=== PATIENT | male | born 1955 | race Caucasian/White ===

== ENCOUNTER → 2016-04-11 | Day surgery (SDC) | payer BC ==
[2016-03-28 10:27] VITALS: Ht 193 cm; Wt 153.6 kg
[~2016-04-11] VITALS: Ht 193 cm; Wt 153.6 kg
[~2016-04-11] MED LIST: 500ML BSS 0.3ML EPI 1:1000PF IRRIG ONE; ACETAMINOPHEN 325 MG TAB PO PRN; AMLO2.5T PO; AMVISC PLUS 0.8ML SYRINGE INT OCU ONE; ASPI1CHW12 PO; ATOR80TA PO; ATROPINE SULFATE 0.1 MG/ML 5ML SYR IV PRN; BRIMONIDINE TART 0.2% OP SOLN PER DROP CHARGE ONE; BSS FLUSH ONE; ENDOCOAT 0.85ML SYRINGE INT OCU ONE; EpHEDrine SULFATE INJ 50 MG/ML AMP IV PRN; EpINEphrine INJ 1MG/ML AMP 1 MG/ML AMP ONE; FINA5TAB PO; GABA1CAP4 PO; HYG25 PO; INSPMPNVLG SC; LACTATED RINGER'S 1000ML 500 ML IV SCH; LIDOCAINE 4% OP SOLN DROP CHARGE ONE; LIDOCAINE 4% OP SOLN DROP CHARGE OPL SCH; LIDOCAINE HCL 1% MPF 2 ML VIAL ONE; LISI40TA PO; METF-384 PO; METO1TAB69 PO; MIDAZOLAM HCL 1 MG/ML 2ML VIAL ONE; MIX: 3ML BSS AND 1ML EPI(PF) TOP ONE; MOXIFLOXACIN OPH SOLN PER DROP CHARGE ONE; POTA10CA28 PO; POVIDONE-IODINE OP SOLN 30 ML BTL ONE; PROPARACAINE 0.5% OP SOLN PER DROP CHARGE OPL SCH; TOBRAMYCIN/DEXAMETHASONE OPH OINT PER APPLN CHARGE ONE
--- NOTE | 2016-04-11 06:55 | History & Physical Bridge - [place] ---
H&P Re-Evaluation Bridge Note: I have examined the patient, reviewed the History & Physical and in the interval since the performance of the History & Physical I have noted the following changes of clinical significance: No changes noted
[2016-04-11] MEDS: PHENYLEPHRINE HCL 2.5% OP SOLN PER DROP CHARGE OPL SCH ×2 (06:56→07:01)
[2016-04-11] MEDS: TROPICAMIDE 1% OP SOLN PER DROP CHARGE OPL SCH ×2 (06:57→07:02)
[2016-04-11] MEDS: CYCLOPENTOLATE HCL 1% OP SOLN PER DROP CHARGE OPL SCH ×2 (06:58→07:03)
[2016-04-11] MEDS: KETOROLAC 0.5% OP SOLN PER DROP CHARGE OPL SCH ×2 (06:59→07:04)
[2016-04-11] MEDS: MOXIFLOXACIN OPH SOLN PER DROP CHARGE OPL SCH ×2 (07:00→07:16)
--- NOTE | 2016-04-11 08:04 | Discharge Instructions-SurgCtr ---
Discharge Instructions Visit Reason for Visit: Cataract Left Eye Discharge Discharge Diagnosis / Problem: cataract left eye Discharge Goals Goal(s): Improve function Medications Stopped Medications Name(s): METFORMIN LAST DOSE MONDAY Activity Recommendations Activity Limitations: per Instructions/Follow-up section Lifting Limitations: no more than 5 pounds Anesthesia . Post Anesthesia Instructions: If you have had General Anesthesia or IV Sedation: * Do not drive today. * Resume driving when surgeon permits. * Do not make important decisions or sign legal documents today. * Call surgeon for: 1. Temperature elevations greater than 101 degrees F. 2. Uncontrollable pain. 3. Excessive bleeding. 4. Persistent nausea and vomiting. 5. Medication intolerance (nausea, vomiting or rash). * For nausea and vomiting use only clear liquids such as: tea, soda, bouillon until nausea subsides, then gradually increase diet as tolerated. * If you have any concerns or questions, call your surgeon's office. If physician is unavailable and it is an emergency, call 911 or go to the nearest emergency room. . Instructions / Follow-Up Instructions / Follow-Up ACTIVITY RECOMMENDATIONS: * Light activities * You may walk outside, read, watch television. * Mild irritation and blurred vision are common for the first few days, redness around the white part of the eye is common. MEDICATIONS: Resume previous medications unless instructed otherwise by your surgeon. Eye drops (today and tomorrow): Gatifloxacin - one drop in operative eye every 2 hours while awake Prednisolone 1% - one drop in operative eye every 2 hours while awake Bromfenac - one drop in operative eye once daily SPECIAL CARE INSTRUCTIONS: * If any problems or concerns, please call Dr. Leavitt's office at . * Keep plastic shield taped over eye to sleep at night. * Keep plastic shield taped over eye except to administer eye drops. * Keep plastic shield on until office visit the following day. FOLLOW UP VISIT: Follow-up with Dr. Leavitt in the [place] office as scheduled. If not already scheduled, please call the office at . Diet Recommendations Home Diet: resume previous diet Procedures Procedures Performed: Left Cataract Phacoemulsification With Intraocular Lens Implant Pending Studies Studies pending at discharge: no Medical Emergencies . Who to Call and When: Medical Emergencies: If at any time you feel your situation is an emergency, please call 911 immediately. . Non-Emergent Contact Non-Emergency issues call your: Garbage Pick Up Worker . . "Provider Documentation" section prepared by Familia Leavitt.
--- NOTE | 2016-04-11 08:04 | [facility] Post Operative Brief Note ---
Immediate Operative Summary Operative Date Apr 11, 2016. Pre-Operative Diagnosis Cataract, left eye Post-Operative Diagnosis same Procedure(s) Performed Left Cataract Phacoemulsification With Intraocular Lens Implant Surgeon Dr Leavitt Commercial Loan Assistant Surgeon(s) none Estimated Blood Loss 0 Findings cataract left eye Specimens none Complication(s) None Disposition Recovery Room / PACU
--- NOTE | 2016-04-11 08:16 | OPERATIVE REPORT ---
DATE OF OPERATION: 04/11/2016 PREOPERATIVE DIAGNOSIS: Cataract, left eye. POSTOPERATIVE DIAGNOSIS: Cataract, left eye. PROCEDURE: Phacoemulsification cataract extraction with intraocular lens placement, left eye. SURGEON: Dr. Leavitt. COMPLICATIONS: None. ESTIMATED BLOOD LOSS: None. ANESTHESIA: Topical with sedation. OPERATION AND FINDINGS: After informed consent was obtained in the holding area the patient was wheeled back to the Operating Room where cardiac monitoring leads and oxygen by nasal cannula was administered by Anesthesia. Gentle IV sedation was given, and the patient's left eye was prepped and draped in usual sterile fashion. A wire lid speculum was placed into the left eye and the operating microscope was swung into position. Using 0.12 forceps and a Supersharp blade a paracentesis port was made 3 o'clock hours away from the 3 o'clock position of patient's left eye. 1% non-preserved Lidocaine was then injected into the anterior chamber for anesthesia. A 2.2 mm keratotome blade was then used to make a shelved clear corneal incision at the 3 o'clock position of his left eye. Amvisc was injected into the anterior chamber and a cystotome and Utrata forceps were used to perform a curvilinear capsulorrhexis. BSS on a hydrodissection cannula was used to hydrodissect the lens nucleus away from the capsular bag. The phacoemulsification handpiece was then used in a stop and chop fashion to remove the lens nucleus. The irrigation and aspiration handpiece was then used to remove the residual cortical material. Amvisc was injected into the capsular bag and anterior chamber and a Bausch \T\ Lomb MX60 13.5 Diopter intraocular lens was injected into the capsular bag. Irrigation and aspiration handpiece was used to remove the residual viscoelastic material. The wounds were hydrated and noted to be watertight. The wire lid speculum was removed from the eye. Vigamox, Brimonidine, and TobraDex ointment were placed on the eye and it was shielded. It should be noted that a mixture of 1 mL nonpreserved epinephrine and 3 mL of BSS was injected into the eye at the beginning of the case in this Flomax patient to aid with pupillary dilation. EndoCoat was also used throughout the case to protect the cornea endothelium. DISPOSITION: The patient tolerated the procedure well and was wheeled to the post anesthesia care unit in stable condition. I attest to the content of the Intraoperative Record and any orders documented therein. Any exceptions are noted below. I attest to the content of the Intraoperative Record and any orders documented therein. Any exceptions are noted below. DARRYL
[2016-04-11 08:18] VITALS: TEMP 36.5
[2016-04-11 08:28] VITALS: BP 142/78; PULSE 61; O2SAT 95
--- NOTE | 2016-04-11 08:41 | Anesthesia Progress Nt - [facility] ---
Anesthesia Post Op Note Date & Time Apr 11, 2016 at 08:41 Vital Signs Pain Intensity: 0 Vital Signs Past 12 Hours Date Time Temp Pulse Resp B/P Pulse Ox O2 Delivery O2 Flow Rate FiO2 04/11/16 08:28 61 20 142/78 95 Room Air 04/11/16 08:18 36.5 68 16 173/93 97 Room Air 04/11/16 06:45 37.1 70 20 153/79 100 Room Air Notes Mental Status: alert / awake / arousable, participated in evaluation Pt Amnestic to Procedure: Yes Nausea / Vomiting: adequately controlled Pain: adequately controlled Airway Patency, RR, SpO2: stable & adequate BP & HR: stable & adequate Hydration State: stable & adequate Anesthetic Complications: no major complications apparent
== END | disposition home or self-care (01) ==
LOC: X.SURG 06:34
PROVIDERS: ATTEND Ophthalmology
DX: H26.9 Unspecified cataract (principal); H54.7 Unspecified visual loss; E11.319 Type 2 diabetes mellitus with unspecified diabetic retinopathy without macular edema; I10 Essential (primary) hypertension

== ENCOUNTER → 2016-05-02 | Day surgery (SDC) | payer BC ==
[2016-04-20 11:12] VITALS: Ht 193 cm; Wt 153.6 kg
[~2016-05-02] VITALS: Ht 193 cm; Wt 153.6 kg
[~2016-05-02] MED LIST changes: +FENTANYL CITRATE INJ 50 MCG/1 ML 2 ML VIAL IV PRN; +FLUMAZENIL 0.1 MG/1 ML 10 ML VIAL IV PRN; +HYDROmorphone INJ 2 MG/ML SYR/VIAL IV PRN; +LABETALOL HCL IV 5 MG/ML 20ML IV PRN; -LIDOCAINE 4% OP SOLN DROP CHARGE OPL SCH; +LIDOCAINE 4% OP SOLN DROP CHARGE OPR SCH; +MEPERIDINE HCL 25 MG/ML CARP IV PRN; +NALOXONE HCL 0.4 MG/1 ML VIAL/CARP IV PRN; +ONDANSETRON INJ 2 MG/ML 2 ML VIAL IV PRN; +PHENYLEPHRINE 100MCG/ML 5ML SYR IV PRN; -PROPARACAINE 0.5% OP SOLN PER DROP CHARGE OPL SCH; +PROPARACAINE 0.5% OP SOLN PER DROP CHARGE OPR SCH
[2016-05-02] MEDS: PHENYLEPHRINE HCL 2.5% OP SOLN PER DROP CHARGE OPR SCH ×2 (07:53→07:58)
[2016-05-02] MEDS: TROPICAMIDE 1% OP SOLN PER DROP CHARGE OPR SCH ×2 (07:54→07:59)
[2016-05-02] MEDS: CYCLOPENTOLATE HCL 1% OP SOLN PER DROP CHARGE OPR SCH ×2 (07:55→08:00)
[2016-05-02] MEDS: KETOROLAC 0.5% OP SOLN PER DROP CHARGE OPR SCH ×2 (07:56→08:01)
[2016-05-02] MEDS: MOXIFLOXACIN OPH SOLN PER DROP CHARGE OPR SCH ×2 (07:57→08:07)
--- NOTE | 2016-05-02 09:14 | Discharge Instructions-SurgCtr ---
Discharge Instructions Visit Reason for Visit: Cataract Right Eye Discharge Discharge Diagnosis / Problem: cataract right eye Discharge Goals Goal(s): Improve function Medications Stopped Medications Name(s): Metformin. Last dose Monday04/29/16. Activity Recommendations Activity Limitations: per Instructions/Follow-up section Lifting Limitations: no more than 5 pounds Anesthesia . Post Anesthesia Instructions: If you have had General Anesthesia or IV Sedation: * Do not drive today. * Resume driving when surgeon permits. * Do not make important decisions or sign legal documents today. * Call surgeon for: 1. Temperature elevations greater than 101 degrees F. 2. Uncontrollable pain. 3. Excessive bleeding. 4. Persistent nausea and vomiting. 5. Medication intolerance (nausea, vomiting or rash). * For nausea and vomiting use only clear liquids such as: tea, soda, bouillon until nausea subsides, then gradually increase diet as tolerated. * If you have any concerns or questions, call your surgeon's office. If physician is unavailable and it is an emergency, call 911 or go to the nearest emergency room. . Instructions / Follow-Up Instructions / Follow-Up ACTIVITY RECOMMENDATIONS: * Light activities * You may walk outside, read, watch television. * Mild irritation and blurred vision are common for the first few days, redness around the white part of the eye is common. MEDICATIONS: Resume previous medications unless instructed otherwise by your surgeon. Eye drops (today and tomorrow): Gatifloxacin - one drop in operative eye every 2 hours while awake Prednisolone 1% - one drop in operative eye every 2 hours while awake Bromfenac - one drop in operative eye once daily SPECIAL CARE INSTRUCTIONS: * If any problems or concerns, please call Dr. Leavitt's office at . * Keep plastic shield taped over eye to sleep at night. * Keep plastic shield taped over eye except to administer eye drops. * Keep plastic shield on until office visit the following day. FOLLOW UP VISIT: Follow-up with Dr. Leavitt in the [place] office as scheduled. If not already scheduled, please call the office at . Diet Recommendations Home Diet: resume previous diet Procedures Procedures Performed: Right Cataract Phacoemulsification With Intraocular Lens Implant Pending Studies Studies pending at discharge: no Medical Emergencies . Who to Call and When: Medical Emergencies: If at any time you feel your situation is an emergency, please call 911 immediately. . Non-Emergent Contact Non-Emergency issues call your: Career Services Officer . . "Provider Documentation" section prepared by Familia Leavitt.
[2016-05-02 09:15] VITALS: TEMP 36.5
--- NOTE | 2016-05-02 09:15 | [facility] Post Operative Brief Note ---
Immediate Operative Summary Operative Date May 02, 2016. Pre-Operative Diagnosis Right Eye Cataract Post-Operative Diagnosis Same Procedure(s) Performed Right Cataract Phacoemulsification With Intraocular Lens Implant Surgeon Dr Leavitt Film Library Clerk Surgeon(s) None Estimated Blood Loss 0ml Findings cataract right eye Specimens None Complication(s) None Disposition Recovery Room / PACU
--- NOTE | 2016-05-02 09:31 | Anesthesia Progress Nt - [facility] ---
Anesthesia Post Op Note Date & Time May 02, 2016 at 09:30 Vital Signs Pain Intensity: 0 Vital Signs Past 12 Hours Date Time Temp Pulse Resp B/P Pulse Ox O2 Delivery O2 Flow Rate FiO2 05/02/16 09:15 36.5 65 16 151/77 95 Room Air 05/02/16 07:42 37.1 66 20 159/76 96 Room Air Notes Mental Status: alert / awake / arousable, participated in evaluation Pt Amnestic to Procedure: Yes Nausea / Vomiting: adequately controlled Pain: adequately controlled Airway Patency, RR, SpO2: stable & adequate BP & HR: stable & adequate Hydration State: stable & adequate Anesthetic Complications: no major complications apparent
[2016-05-02 09:46] VITALS: BP 160/78; PULSE 62; O2SAT 94
--- NOTE | 2016-05-02 11:29 | OPERATIVE REPORT ---
DATE OF OPERATION: 05/02/2016 PREOPERATIVE DIAGNOSIS: Cataract, right eye. POSTOPERATIVE DIAGNOSIS: Cataract, right eye. PROCEDURE: Phacoemulsification cataract extraction with intraocular lens placement, right eye. SURGEON: Dr. Leavitt. COMPLICATIONS: None. ESTIMATED BLOOD LOSS: None. ANESTHESIA: Topical with sedation. OPERATION AND FINDINGS: After informed consent was obtained in the holding area the patient was wheeled back to the Operating Room where cardiac monitoring leads and oxygen by nasal cannula was administered by Anesthesia. Gentle IV sedation was given, and the patient's right eye was prepped and draped in usual sterile fashion. A wire lid speculum was placed into the right eye and the operating microscope was swung into position. Using 0.12 forceps and a Supersharp blade a paracentesis port was made 3 o'clock hours away from the 9 o'clock position of patient's right eye. 1% non-preserved Lidocaine was then injected into the anterior chamber for anesthesia. A 2.2 mm keratotome blade was then used to make a shelved clear corneal incision at the 9 o'clock position of his right eye. Amvisc was injected into the anterior chamber and a cystotome and Utrata forceps were used to perform a curvilinear capsulorrhexis. BSS on a hydrodissection cannula was used to hydrodissect the lens nucleus away from the capsular bag. The phacoemulsification handpiece was then used in a stop and chop fashion to remove the lens nucleus. The irrigation and aspiration handpiece was then used to remove the residual cortical material. Amvisc was injected into the capsular bag and anterior chamber and a Bausch \T\ Lomb MX60, 13.0 Diopter intraocular lens was injected into the capsular bag. Irrigation and aspiration handpiece was used to remove the residual viscoelastic material. The wounds were hydrated and noted to be watertight. The wire lid speculum was removed from the eye. Vigamox, Brimonidine, and TobraDex ointment were placed on the eye and it was shielded. It should be noted that a mixture of 1 mL of nonpreserved epinephrine and 3 mL of BSS was injected into the eye at beginning of the case to aid with pupillary dilation in this Flomax patient. EndoCoat was also used during the case to protect the cornea endothelium. DISPOSITION: The patient tolerated the procedure well and was wheeled to the post anesthesia care unit in stable condition. I attest to the content of the Intraoperative Record and any orders documented therein. Any exceptions are noted below. I attest to the content of the Intraoperative Record and any orders documented therein. Any exceptio ns are noted below.
== END | disposition home or self-care (01) ==
LOC: X.SURG 07:31
PROVIDERS: ATTEND Ophthalmology
DX: H25.11 Age-related nuclear cataract, right eye (principal); E11.3599 Type 2 diabetes mellitus with proliferative diabetic retinopathy without macular edema, unspecified eye; Z87.891 Personal history of nicotine dependence; I10 Essential (primary) hypertension; G47.30 Sleep apnea, unspecified

== ENCOUNTER → 2017-03-07 | Outpatient (CLI) | payer OTHER ==
[~2017-03-07] MED LIST changes: -500ML BSS 0.3ML EPI 1:1000PF IRRIG ONE; -ACETAMINOPHEN 325 MG TAB PO PRN; -AMVISC PLUS 0.8ML SYRINGE INT OCU ONE; -ATROPINE SULFATE 0.1 MG/ML 5ML SYR IV PRN; -BRIMONIDINE TART 0.2% OP SOLN PER DROP CHARGE ONE; -BSS FLUSH ONE; -ENDOCOAT 0.85ML SYRINGE INT OCU ONE; -EpHEDrine SULFATE INJ 50 MG/ML AMP IV PRN; -EpINEphrine INJ 1MG/ML AMP 1 MG/ML AMP ONE; -FENTANYL CITRATE INJ 50 MCG/1 ML 2 ML VIAL IV PRN; -FLUMAZENIL 0.1 MG/1 ML 10 ML VIAL IV PRN; -HYDROmorphone INJ 2 MG/ML SYR/VIAL IV PRN; -LABETALOL HCL IV 5 MG/ML 20ML IV PRN; -LACTATED RINGER'S 1000ML 500 ML IV SCH; -LIDOCAINE 4% OP SOLN DROP CHARGE ONE; -LIDOCAINE 4% OP SOLN DROP CHARGE OPR SCH; -LIDOCAINE HCL 1% MPF 2 ML VIAL ONE; -MEPERIDINE HCL 25 MG/ML CARP IV PRN; +METO100T44 PO; -METO1TAB69 PO; -MIDAZOLAM HCL 1 MG/ML 2ML VIAL ONE; -MIX: 3ML BSS AND 1ML EPI(PF) TOP ONE; -MOXIFLOXACIN OPH SOLN PER DROP CHARGE ONE; -NALOXONE HCL 0.4 MG/1 ML VIAL/CARP IV PRN; -ONDANSETRON INJ 2 MG/ML 2 ML VIAL IV PRN; -PHENYLEPHRINE 100MCG/ML 5ML SYR IV PRN; -POVIDONE-IODINE OP SOLN 30 ML BTL ONE; -PROPARACAINE 0.5% OP SOLN PER DROP CHARGE OPR SCH; -TOBRAMYCIN/DEXAMETHASONE OPH OINT PER APPLN CHARGE ONE
[2017-03-07 17:10] LABS: ALBUMIN 3.9 gm/dl (3.4-5.0); BLOOD UREA NITROGEN 17 mg/dl (7-18); CALCIUM 8.6 mg/dl (8.5-10.1); CARBON DIOXIDE 30 mmol/L (21-32); CREATININE 0.74 mg/dl (0.60-1.40); GLUCOSE 103 mg/dl (70-99); POTASSIUM 3.2 mmol/L (3.5-5.1); SODIUM 139 mmol/L (136-145)
[2017-03-07 17:11] LABS: PHOSPHORUS 2.4 mg/dl (2.5-4.9)
[2017-03-07 17:25] LABS: CREATININE RANDOM URINE 65.8 mg/dl; POTASSIUM RANDOM URINE 66.1 mEq/L
== END | disposition home or self-care (01) ==
LOC: C.LAB1850 15:08
PROVIDERS: ATTEND Internal Medicine Nephrology
DX: E11.29 Type 2 diabetes mellitus with other diabetic kidney complication (principal); E87.6 Hypokalemia

== ENCOUNTER → 2017-06-02 | Outpatient (CLI) | payer OTHER ==
[~2017-06-02] MED LIST changes: +GABA-1219 PO; -GABA1CAP4 PO
[2017-06-02 16:17] LABS: ALBUMIN 3.6 gm/dl (3.4-5.0); BLOOD UREA NITROGEN 22 mg/dl (7-18); CALCIUM 8.9 mg/dl (8.5-10.1); CARBON DIOXIDE 31 mmol/L (21-32); CREATININE 0.78 mg/dl (0.60-1.40); GLUCOSE 92 mg/dl (70-99); PHOSPHORUS 2.5 mg/dl (2.5-4.9); POTASSIUM 3.2 mmol/L (3.5-5.1); SODIUM 140 mmol/L (136-145)
== END | disposition home or self-care (01) ==
LOC: C.LAB1850 14:17
PROVIDERS: ATTEND Internal Medicine Nephrology
DX: E87.6 Hypokalemia (principal)

== ENCOUNTER → 2017-06-21 | Outpatient (CLI) | payer OTHER ==
[2017-06-21 15:59] LABS: ALBUMIN 3.7 gm/dl (3.4-5.0); BLOOD UREA NITROGEN 21 mg/dl (7-18); CALCIUM 9.1 mg/dl (8.5-10.1); CARBON DIOXIDE 32 mmol/L (21-32); CREATININE 0.91 mg/dl (0.60-1.40); GLUCOSE 219 mg/dl (70-99); PHOSPHORUS 2.8 mg/dl (2.5-4.9); POTASSIUM 3.6 mmol/L (3.5-5.1); SODIUM 136 mmol/L (136-145)
== END | disposition home or self-care (01) ==
LOC: C.LAB1850 13:54
PROVIDERS: ATTEND Internal Medicine Nephrology
DX: I10 Essential (primary) hypertension (principal)

== ENCOUNTER → 2017-07-07 | Outpatient (CLI) | payer OTHER ==
[2017-07-07 15:58] LABS: ALBUMIN 3.7 gm/dl (3.4-5.0); BLOOD UREA NITROGEN 25 mg/dl (7-18); CALCIUM 8.5 mg/dl (8.5-10.1); CARBON DIOXIDE 31 mmol/L (21-32); CREATININE 0.91 mg/dl (0.60-1.40); GLUCOSE 161 mg/dl (70-99); POTASSIUM 4.2 mmol/L (3.5-5.1); SODIUM 138 mmol/L (136-145)
[2017-07-08 06:29] LABS: HEMOGLOBIN A1C 7.4 % (4.5-5.6)
== END | disposition home or self-care (01) ==
LOC: C.LAB1850 15:00
PROVIDERS: ATTEND Internal Medicine Nephrology
DX: E87.6 Hypokalemia (principal); R80.9 Proteinuria, unspecified

== ENCOUNTER → 2017-07-19 | Outpatient (CLI) | payer OTHER | END | disposition home or self-care (01) | LOC: C.LAB1850 14:55 | PROVIDERS: ATTEND Family Medicine | DX: Z12.5 Encounter for screening for malignant neoplasm of prostate (principal) ==

== ENCOUNTER → 2017-10-12 | Outpatient (CLI) | payer OTHER ==
[2017-10-12 16:51] LABS: ALBUMIN 3.7 gm/dl (3.4-5.0); BLOOD UREA NITROGEN 26 mg/dl (7-18); CALCIUM 8.8 mg/dl (8.5-10.1); CARBON DIOXIDE 30 mmol/L (21-32); CREATININE 0.96 mg/dl (0.60-1.40); GLUCOSE 291 mg/dl (70-99); PHOSPHORUS 3.8 mg/dl (2.5-4.9); POTASSIUM 3.7 mmol/L (3.5-5.1); SODIUM 138 mmol/L (136-145)
== END | disposition home or self-care (01) ==
LOC: C.LAB1850 14:20
PROVIDERS: ATTEND Internal Medicine Nephrology
DX: E87.6 Hypokalemia (principal)

== ENCOUNTER 2020-03-25 07:00 | Observation (INO) ==
[2020-03-25] MEDS ORDERED: HEPARIN (PORCINE) 1000 UNIT/ML 10 ML (CATH LAB USE ONLY) ONE ×2 (07:13→10:21)
[2020-03-25] MEDS ORDERED: niCARdipine HCL INJ 2.5 MG/ML 10 ML AMP ONE (07:13)
[2020-03-25] MEDS ORDERED: fentaNYL citrate 100 MCG/2 ML VIAL ONE ×2 (07:14→10:44)
[2020-03-25] MEDS ORDERED: NITROGLYCERIN/D5W 100MCG/ML 20ML SYR ONE (07:14)
[2020-03-25] MEDS ORDERED: MIDAZOLAM HCL 1 MG/ML 2ML VIAL ONE ×4 (07:14→10:53)
--- NOTE | 2020-03-25 08:19 | History & Physical Bridge Note ---
Date of Service March 25, 2020 History & Physical Bridge Note I have examined the patient, reviewed the History & Physical and in the interval since the performance of the History & Physical I have noted the following changes of clinical significance: no changes noted
--- NOTE | 2020-03-25 08:20 | Pre Anesthesia Assessment ---
Date of Service March 25, 2020 Pre Sedation Assessment Vital Signs Temp Pulse Pulse Pulse Resp BP Pulse Ox 03/26/20 07:40 36.6 C 66 20 131/61 96 03/26/20 04:00 36.5 C 63 20 125/69 98 03/26/20 00:16 36.6 C 60 20 119/61 95 03/25/20 19:26 76 03/25/20 19:24 73 18 162/72 H 95 03/25/20 19:11 36.4 C L 69 20 170/77 H 96 03/25/20 16:16 69 16 174/76 H 95 03/25/20 15:46 70 18 180/73 H 95 03/25/20 15:06 68 17 177/72 H 95 03/25/20 14:07 36.7 C 71 18 177/73 H 98 03/25/20 14:06 36.9 C 78 78 18 197/93 H 95 03/25/20 13:30 72 16 154/80 H 96 03/25/20 13:15 81 16 176/76 H 95 03/25/20 13:00 74 16 181/113 H 96 03/25/20 12:35 69 16 94 03/25/20 12:20 69 16 154/68 H 94 03/25/20 12:05 72 16 147/81 H 94 03/25/20 11:50 73 16 164/70 H 94 03/25/20 11:35 68 16 162/63 H 94 Cardiovascular RRR, no murmur, no edema Respiratory normal respiratory effort, lungs clear to auscultation Pre-Sedation Airway Assessment Smoking Status: Former smoker Hx Sleep Apnea: Yes Short, Thick Neck: No Thyromental Distance: > or= 3.5 Finger Breadths Oral Cavity: + WNL Mallampati Class: III ASA: ASA3 NPO Status Date of Last Intake of Fluids: 03/25/20 Time of Last Intake of Fluids: 06:00 Date of Last Intake of Solid Food: 03/24/20 Time of Last Intake of Solid Foods: 21:00 Procedure Planning Contraindications for Sedation: none Current Medications Reviewed: Yes Notes The planned sedation has been discussed with the patient. Informed Consent was obtained. I have identified the patient, determined the appropriateness of sedation and have assessed the patient immediately prior to the procedure. All medicine(s) and interventions are by my order.
--- NOTE | 2020-03-25 09:44 | Post Anesthesia Assessment ---
Date of Service March 25, 2020 Post Sedation Assessment Vital Signs Temp Pulse Pulse Pulse Resp BP Pulse Ox 03/26/20 07:40 36.6 C 66 20 131/61 96 03/26/20 04:00 36.5 C 63 20 125/69 98 03/26/20 00:16 36.6 C 60 20 119/61 95 03/25/20 19:26 76 03/25/20 19:24 73 18 162/72 H 95 03/25/20 19:11 36.4 C L 69 20 170/77 H 96 03/25/20 16:16 69 16 174/76 H 95 03/25/20 15:46 70 18 180/73 H 95 03/25/20 15:06 68 17 177/72 H 95 03/25/20 14:07 36.7 C 71 18 177/73 H 98 03/25/20 14:06 36.9 C 78 78 18 197/93 H 95 03/25/20 13:30 72 16 154/80 H 96 03/25/20 13:15 81 16 176/76 H 95 03/25/20 13:00 74 16 181/113 H 96 03/25/20 12:35 69 16 94 03/25/20 12:20 69 16 154/68 H 94 03/25/20 12:05 72 16 147/81 H 94 03/25/20 11:50 73 16 164/70 H 94 03/25/20 11:35 68 16 162/63 H 94 Recovery Score Activity: Moves 4 extremities Respiration: Deep Breath/Cough Circulation: +/-20% PreAnes Value Consciousness: Arouseable (by name) Oxygen Saturation: > 92% On Room Air Discharge Sedation Level of Care: Phase I Post Sedation Plan On clinical assessment, the patient appears to have tolerated the sedation without complications. Patient is recovering as anticipated. Patient will continue to be monitored by nursing and may be discharged when sedation discharge criteria are met per below protocol. Upon Completions of procedure up to 15 minutes continue every 5 minute vital signs and the P.A.R. score; then discharge to a Phase I or Fast Track to Phase II per the following guidelines: * Discharge Patient to appropriate Phase II area if PAR is 8 or greater or return to pre- procedure baseline. The post - procedure orders will be as directed. * If PAR score is less than 8 or not return to pre-procedure baseline then patient will follow Phase I monitoring till PAR is reached for Phase II. The Phase I may be done in procedure room or may call to secure a Phase I area. * If naloxone or flumazenil are used for reversal, hold in Phase I for continued monitoring from when last reversal dose was given for a minimum of 60 minutes or longer pending the nurse and/or physician discretion of patient condition before discharge to Phase II. Please call the Sedation Physician to re-evaluate and complete post-note for discharge to Phase II area. Do NOT discharge from procedure sedation or Phase 1 until post- sedation evaluation note is complete by procedure /sedation MD Sedation Discharge Instructions to be given to the patient at discharge to home.
[2020-03-25] MEDS ORDERED: ADENOSINE IV SOLN 3 MG/ML 20 ML VIAL IV ONE (09:53)
--- NOTE | 2020-03-25 09:54 | Cardiac Catheterization ---
Cardiac Cath Procedure Full Procedure Date March 25, 2020 Pre-Procedure Diagnosis Pre-Procedure Diagnosis: Positive Stress Test AUC Score AUC Score: 7 Post-Procedure Diagnosis Post-Procedure Diagnosis: Severe CAD and Elevated Intracardiac Pressures Procedure(s) Performed Procedure(s) Performed: Coronary Angiography, Left Heart Cath and Right Heart Cath (Right heart catheter advanced to the right atrium with 8 of a whisper wire, and Gary wire. Unable to advance catheter beyond the right atrium despite repositioning patient multiple times.) General Studies Program Chair Usman Best DO Chandelier Maker(s) Jeni, RTR Estimated Blood Loss Estimated Blood Loss: 10cc Medication(s) Medication(s): Fentanyl, Heparin, Lidocaine 1%, Nicardipine, Nitroglycerin and Versed Summary of Findings 75% early-mid LAD 70% proximal, 80% mid RCA 50% ostial Lcx Elevated LVEDP Elevated RA pressure Hemodynamics Rest Ao:: 149/65/100 Final Ao: 169/74/113 LV: 174/10/29 RA: 19/15/13 RV: Unable to advance swan norman catheter beyond RA despite use of whisper wire and swan wire. Recommendations Recommendations: Management Recommendatons (IVUS/FFR ostial Lcx. Patient prefers PCI, however, if ostial Lcx is significant, patient agreeable for CTS referrral and CABG) Specimens Specimens: None Radiation Exposure (mGy) 2288 Contrast (mls) 85 Fluids (cc crystalloids) Fluids (cc crystalloids): 165 Nss Drains Drains: N/A Anesthesia Moderate sedation. Start 0834. End 0935. Sedation monitor: Francis RAMIREZ Procedural Complication(s) None Disposition Patient remained in Emergency Planner for IVUS/FFR I attest to the content of the Intraoperative Record and any orders documented therein. Any exceptions are noted below. ACC Data: Emergency Planner Cardiac Status Clinical evaluation leading to the procedure Dobutamine stress echo demonstrating anterior apical and apical lateral ischemia. Exertional symptoms include dyspnea. Indirect evidence of pulmonary hypertension per resting 2D transthoracic echocardiogram. CAD Presenation: Stable angina Anginal Classification: CCS II (Activity limited by chronic joint pain.) Heart Failure: No Imaging Studies Past 6 Months: Yes Stress Studies Past 6 Months: Yes Stress Echocardiogram: Yes - Positive and Risk/Extent of Ischemia (High) Coronary Anatomy Dominant: Right Left Main (% Stenosis): Distal (20%, mild calcification) LAD (% Stenosis): Proximal (20%, moderate calcification), Mid (75%, Moderate calcification) and Distal (40%) Circumflex (% Stenosis): Ostial (50%) and Mid (10% diffuse) OM1 (% Stenosis): Ostial (small 1mm vessel) and Mid (10%) OM2 (% Stenosis): Ostial (70%, small 1.5 -2.0 mm vessel) OM3 (% Stenosis): Mid (Large vessel, 20%) and Distal (10-20% diffuse, course around the posterior lateral wall) RCA (% Stenosis): Proximal (70%) and Distal (80%) R PDA (% Stenosis): Proximal (10-20% diffuse) R PL1 (% Stenosis): Proximal (10-20% diffuse) AM (% Stenosis): Proximal (30% diffuse) Diagnostic Physicians Name: Usman Best DO Status: Elective Closure Device Percutaneous Entry Location: Right antecubital venous access utilized for right heart catheterization. Closure Device: Radial Band Recommendations: Management Recommendatons (IVUS/FFR ostial Lcx. Patient prefers PCI, however, if ostial Lcx is significant, patient agreeable for CTS referrral and CABG) PCI Indication: + Stress Test Intraprocedure Events Significant Disection: No Perforation: No
[2020-03-25] MEDS ORDERED: CLOPIDOGREL BISULFATE 300 MG TAB ONE (11:08)
[2020-03-25] MEDS ORDERED: NITROGLYCERIN SL 0.4 MG/TAB TAB SL PRN (11:21)
[2020-03-25] MEDS ORDERED: ONDANSETRON INJ 2 MG/ML 2 ML VIAL IV PRN (11:21)
[2020-03-25] MEDS ORDERED: ACETAMINOPHEN 325 MG TAB PO PRN (11:21)
--- NOTE | 2020-03-25 11:21 | Post Anesthesia Assessment ---
Date of Service March 25, 2020 Post Sedation Assessment Vital Signs Temp Pulse Resp BP Pulse Ox 03/25/20 08:03 98.2 F 65 20 178/69 H 97 Recovery Score Activity: Moves 4 extremities Respiration: Deep Breath/Cough Circulation: +/-20% PreAnes Value Consciousness: Arouseable (by name) Oxygen Saturation: > 92% On Room Air Discharge Sedation Level of Care: Fast Track Phase II Post Sedation Plan On clinical assessment, the patient appears to have tolerated the sedation without complications. Patient is recovering as anticipated. Patient will continue to be monitored by nursing and may be discharged when sedation discharge criteria are met per below protocol. Upon Completions of procedure up to 15 minutes continue every 5 minute vital signs and the P.A.R. score; then discharge to a Phase I or Fast Track to Phase II per the following guidelines: * Discharge Patient to appropriate Phase II area if PAR is 8 or greater or return to pre- procedure baseline. The post - procedure orders will be as directed. * If PAR score is less than 8 or not return to pre-procedure baseline then patient will follow Phase I monitoring till PAR is reached for Phase II. The Phase I may be done in procedure room or may call to secure a Phase I area. * If naloxone or flumazenil are used for reversal, hold in Phase I for continued monitoring from when last reversal dose was given for a minimum of 60 minutes or longer pending the nurse and/or physician discretion of patient condition before discharge to Phase II. Please call the Sedation Physician to re-evaluate and complete post-note for discharge to Phase II area. Do NOT discharge from procedure sedation or Phase 1 until post- sedation evaluation note is complete by procedure /sedation MD Sedation Discharge Instructions to be given to the patient at discharge to home.
[2020-03-25] MEDS ORDERED: ALBUTEROL HFA 8 GM INHALER INH PRN (11:26)
[2020-03-25] MEDS ORDERED: SODIUM CHLORIDE 0.9% 1000ML 1,000 ML IV SCH (11:30)
--- NOTE | 2020-03-25 11:53 | Cardiac Catheterization ---
[facility] Data: Contact Lens Blocker Cardiac Status Clinical evaluation leading to the procedure CAD Presenation: Positive Stress Test Anginal Classification: CCS III Heart Failure: No Cardiogenic Shock within 24 Hours: No Cardiac Arrest within 24 Hours: No Imaging Studies Past 6 Months: Yes Stress Studies Past 6 Months: Yes Stress Echocardiogram: Yes - Positive and Risk/Extent of Ischemia (Intermediate) Diagnostic Physicians Name: Aaron Singer MD Status: Elective Closure Device Percutaneous Entry Location: Radial Closure Device: Radial Band Recommendations: PCI without planned CABG PCI Indication: + Stress Test Lesion Segment Name: Mid LAD Culprit Artery: Yes Stenosis Prior to Rx (%): 70 Chronic Total Occlusion: No IVUS: No FFR: No Pre-Procedure MEY Flow: 3 Previously Treated Lesion: No Lesion Complexity: High/C Lesion Length (mm): 40 Thrombus Present: No Bifurcation Lesion: Yes Guidewire Across Lesion: Stenosis Post-Procedure (%): 0 Post-Procedure MEY Flow: 3 Devices(s) Deployed: Yes Yes Intraprocedure Events Significant Disection: No Perforation: No Cardiac Cath Procedure Full Procedure Date March 25, 2020 Pre-Procedure Diagnosis Pre-Procedure Diagnosis: Positive Stress Test AUC Score AUC Score: 7 Post-Procedure Diagnosis Post-Procedure Diagnosis: Severe CAD and Successful PCI Procedure(s) Performed Procedure(s) Performed: Coronary Angiography, Drug Eluting Stent, IVUS and Fractional Flow [place] Engineer Chief Aaron Singer MD Shipper/Receiver(s) Jeni, RTR Estimated Blood Loss Estimated Blood Loss: 15 Medication(s) Medication(s): Adenosine, Clopidogrel, Fentanyl, Heparin, Nicardipine, Nitroglycerin and Versed Summary of Findings Indication: Positive stress test Access: 6 Fr right radial artery Catheters: EBU 3.75 guide Findings: For full details of patient's coronary angiography please see cath report dictated by Dr. Best. Briefly, patient found to have severe multivessel disease with a 70% mid LAD stenosis and proximal/mid severe RCA disease. Also noted to have moderate ostial circumflex disease. Plan to assess ostial circumflex and potentially proceed with PCI to LAD, RCA. IVUS/FFR of ostial circumflex Left main cannulated with EBU 3.75 guide BMW wire placed into distal circumflex Protem IVUS catheter passed into mid circumflex. Pullback revealed mild to moderate calcified plaque in the mid/proximal segment. At circumflex ostium had moderate to severe circumferential plaque extending to left main (MLA 3.9 mm). Mild circumferential plaque in distal left main. ACIST FFR catheter placed into mid LAD Pd/Pa 0.98 FFR 0.91 BMW wire removed from circumflex and decision to proceed with PCI of LAD -- PCI of LAD-- Antithrombotic therapy: Heparin, Procedure: BMW wire passed across lesion into distal vessel Mid LAD lesion predilated with 2.5 compliant balloon Protem IVUS revealed diffuse, heavily calcified disease with severe mid segment stenosis With the aid of a GuideLiner dilated lesion stented with 2.5 x 30 mm Bernard drug- eluting Stent postdilated with 3.0 and 3.5 NC balloons Repeat IVUS revealed moderate eccentric plaque just distal to place stent. Second DANGELO (2.5 x 15 mm Bernard) placed to mid LAD, overlapping with distal aspect of initial stent. In process of placing stent there was some deformation of proximal aspect of initial stent from GuideLiner. Repeat IVUS assessment showed no proximal edge dissection. Stent reexpanded with 3.5 NC balloon proximally. IC vasodilators administered for spasm Post procedure MEY 3 flow, stents well expanded with minimal residual stenosis and no apparent cardiac complications. Arterial Closure: TR band Summary: 1. Severe 2 vessel coronary artery disease -70% mid LAD 70% proximal, 80% mid RCA Intermediate ostial circumflex disease (FFR 0.91). 2. Successful PCI of mid LAD with 2 overlapping drug-eluting stents (2.5 x 30, 2.5 x 15; postdilated with 3.5 NC). Recommendations: To PCU for continued monitoring Loaded with clopidogrel 600 mg in Contact Lens Blocker Continue dual-antiplatelet therapy for at least 6 months Consult cardiac Rehab Plan for staged PCI of RCA at some point in the near future pending renal function. Hemodynamics Rest Ao:: 143/66/98 Final Ao: 167/74/113 LV: -- Recommendations Recommendations: PCI without planned CABG Specimens Specimens: None Radiation Exposure (mGy) 6224 Contrast (mls) 150 Fluids (cc crystalloids) Fluids (cc crystalloids): 400 Drains Drains: N/A Anesthesia Moderate sedation Procedural Complication(s) None Disposition PCU I attest to the content of the Intraoperative Record and any orders documented therein. Any exceptions are noted below. EdvivoG Card Cath Procedure Codes Cardiac Catheterization Procedure 1: Cardiovascular Cath Procedures: 19854 (Doppler) Pressure Wire Therapeutic Services & Ancillary Proc Procedure 1: Cardiovascular Tx and Anc Procedures: 24463 IV Ultrasound (Coronary or Graft) Procedure 2: Cardiovascular Tx and Anc Procedures: 55567 IV Ultrasound Ea addl vessel Moderate Sedation Procedure 1: Sedation/Anesthesia: 76764 Mod Sedation by the same physician; Ea [id number] Minutes Stenting Procedure 1: Cardiovascular Stent Procedures: 37960 Perc transcatheter placement of intracoronary stent(s), with ang PG Care Time/CCT Total # of Minutes Spent Total Time Spent with Patient: Total time spent is greater than 50% in coordination of care (as documented) at patient's floor/unit and/or counseling patient:
[2020-03-25] MEDS ORDERED: GLUCAGON FOR INJ 1 MG VIAL SQ PRN (12:53)
[2020-03-25] MEDS ORDERED: CARBOHYDRATES FOR HYPOGLYCEMIA PO PRN (12:53)
[2020-03-25] MEDS ORDERED: GLUCOSE 40% GEL 15 GM TUBE PO PRN (12:53)
[2020-03-25] MEDS ORDERED: GLUCOSE 10 TABS/TUBE PO PRN (12:53)
[2020-03-25] MEDS ORDERED: DEXTROSE 50% 50 ML SYRINGE IV PRN (12:53)
[2020-03-25] MEDS ORDERED: PHARMACY GLYCEMIC MGMT CONSULT PRN (13:11)
[2020-03-25] MEDS ORDERED: INSULIN ASPART 100 UNITS/ML VIAL SC PRN (14:30)
[2020-03-25] MEDS: ACETAMINOPHEN 325 MG TAB PO SCH ×2 (14:30→21:17)
--- NOTE | 2020-03-25 14:33 | Pharmacy Report ---
Glycemic Control Consultation - Date of Service March 25, 2020 - Scope Scope: Glycemic Pharmacist consulted for glycemic control and to write orders per [facility] inpatient glycemic control protocol. - Objective Weight: 165 kg Accuchecks BSG (last 24hrs): 03/25/20 11:01 POC Glucose 123 H HbA1c: per patient HbA1C 6.8% - Recent Pertinent Medications Outpatient Anti-diabetic Regimen: * Novolog pump settings TBD * A1c is ordered Risk Factors for Insulin Resistance: * Diet: T2DM - Assessment & Plan Assessment & Plan: ASSESSMENT: * Mr Arnold is a 64 y/o M with a PMH of well controlled T2DM who presents for a PCI. Patient is on an insulin pump at home- this was disconnected prior to PCI. Patient does have pump and supplies here. * Per conversation with patient, will resume insulin pump. Order HbA1C for our records - patient reports it is 6.8%. * Pt is to manage BSGs with insulin pump per outpatient settings. * RN will have patient read and sign agreement CF [id number] Insulin Pump Therapy Patient Agreement. * RN will provide and explain form [id number] Flowsheet for Patient * Patient will document their insulin dose given on NS-824 which is kept at the bedside, available to caregivers upon request, and which becomes part of the permanent medical record. If at any time the patients condition evidences that he/she is not able to manage the insulin pump (i.e. frequent hypo/hyperglycemia) Pharmacy will assume glycemic control by discontinuing the pump & managing with SQ basal bolus insulin regimen for the interim. PLAN FOR INPATIENT GLYCEMIC CONTROL: * Patient to self manage as above with insulin pump RECOMMENDATIONS FOR DISCHARGE * Patient's self-reported HbA1C indicates excellent control so okay to continue home regimen as long as patient does not have hypoglycemia. Thank you.
[2020-03-25] MEDS ORDERED: INSULIN ASPART 100 UNITS/ML 3 ML PEN SC SCH (16:30)
--- NOTE | 2020-03-25 16:51 | Electrocardiogram Report ---
Test Reason : Blood Pressure : / mmHG Vent. Rate : 073 BPM Atrial Rate : 073 BPM P-R Int : 208 ms QRS Dur : 096 ms QT Int : 412 ms P-R-T Axes : 089 079 071 degrees QTc Int : 453 ms Normal sinus rhythm Low voltage QRS Poor R wave progression, consider anterior NC vs. lead placement vs. LVH Borderline ECG When compared with ECG of 17-OCT-2013 10:47, Premature atrial complexes are no longer Present Nonspecific T wave abnormality no longer evident in Lateral leads Confirmed by Aaron Lorenz ([id number]) on 03/25/2020 4:51:43 PM Referred By: Usman Best Confirmed By:Sid Lorenz
[2020-03-25] MEDS: SPIRONOLACTONE 25 MG TAB PO SCH (17:08)
[2020-03-25] MEDS: NovoLOG INSULIN PUMP SCH ×2 (17:11→21:28)
--- NOTE | 2020-03-25 17:44 | Communication Note ---
Date of Service: March 25, 2020 Pt assessed at bedside in coverage of Dr Best. SBP 177. Medication schedule off due to procedure compared to his home routine. Will given Spironolactone and amlodipine now. Will administer his evening metoprolol early. Lasix on hold due to contrast exposure and need for repeat cath, staged PCI. Pt tells me he is confident with regards to self management of blood sugars with insulin pump. Discussed with pharmacy and appropriate orders are in place.
[2020-03-25] MEDS: amLODIPine BESYLATE 5 MG TAB PO SCH (17:47)
[2020-03-25] MEDS: METOPROLOL SUCC 50MG EXT REL TAB PO SCH (17:47)
[2020-03-25] MEDS: DOXAZosin MESYLATE 4 MG TAB PO SCH (21:14)
[2020-03-25] MEDS: GABAPENTIN 300 MG CAP PO SCH (21:14)
[2020-03-25] MEDS: ATORVASTATIN 40 MG TAB PO SCH (21:15)
[2020-03-25] MEDS: lisinopril 40 MG TAB PO SCH (21:18)
[2020-03-26 05:56] LABS: Basophils # (auto) 0.02 K/uL (0-0.2); Basophils % (auto) 0.3 %; Eosinophils # (auto) 0.16 K/uL (0-0.5); Eosinophils % (auto) 2.4 %; Hematocrit (blood only) 36.3 % (42-52); Hemoglobin 11.4 g/dL (14.0-18.0); Immature Granulocytes # (auto) 0.01 K/uL (0.00-0.02); Immature Granulocytes % (auto) 0.1 %; Lymphocytes # (auto) 0.86 K/uL (1.2-3.4); Lymphocytes % (auto) 12.7 %; Mean Corpuscular Hemoglobin 29.4 pg (25-34); Mean Corpuscular Hgb Conc 31.4 g/dL (32-36); Mean Corpuscular Volume 93.6 fL (80-100); Mean Platelet Volume 10.9 fL (7.4-10.4); Monocytes # (auto) 0.63 K/uL (0.11-0.59); Monocytes % (auto) 9.3 %; Neutrophils # (auto) 5.08 K/uL (1.4-6.5); Neutrophils % (auto) 75.2 %; Platelet Count 193 K/uL (130-400); RDW Coefficient of Variation 15.3 % (11.5-14.5); RDW Standard Deviation 52.5 fL (36.4-46.3); Red Blood Count 3.88 M/uL (4.7-6.1); White Blood Count 6.76 K/uL (4.8-10.8)
[2020-03-26 06:22] LABS: BUN Creatinine Ratio 24.5 (10-20); Calcium 8.6 mg/dl (8.5-10.1); Creatinine Clr Calc Pharmacy 173.4 ml/min; Est GFR (Non-African American) 98.3; Potassium 3.5 mmol/L (3.5-5.1)
[2020-03-26 07:36] LABS: Estimated Average Glucose 137 mg/dl; Hemoglobin A1C 6.4 % (4.5-5.6)
[2020-03-26] MEDS: ISOSORBIDE MONO EXTENDED REL 30 MG TABCR PO SCH (08:14)
[2020-03-26] MEDS: SPIRONOLACTONE 25 MG TAB PO SCH (08:14)
[2020-03-26] MEDS: ASPIRIN 81 MG ECTAB PO SCH (08:14)
[2020-03-26] MEDS: ACETAMINOPHEN 325 MG TAB PO SCH ×3 (08:14→20:35)
[2020-03-26] MEDS: amLODIPine BESYLATE 5 MG TAB PO SCH (08:14)
[2020-03-26] MEDS: METOPROLOL SUCC 50MG EXT REL TAB PO SCH (08:15)
[2020-03-26] MEDS: NovoLOG INSULIN PUMP SCH ×4 (08:22→21:03)
[2020-03-26] MEDS: FERROUS SULFATE 325 MG TAB PO SCH (08:54)
[2020-03-26] MEDS: FINASTERIDE 5 MG TAB PO SCH (08:55)
[2020-03-26] MEDS: CLOPIDOGREL BISULFATE 75 MG TAB PO SCH (08:55)
[2020-03-26] MEDS ORDERED: METOPROLOL SUCC 50MG EXT REL TAB PO SCH (09:00)
[2020-03-26] MEDS ORDERED: amLODIPine BESYLATE 5 MG TAB PO SCH (09:00)
--- NOTE | 2020-03-26 09:21 | Pharmacy Report ---
Pharmacy Glycemic Sign Off Nt - Date of Service March 26, 2020 - Assessment & Plan ASSESSMENT: * Pharmacy was consulted by Dr Singer on 03/25/20 for glycemic control and to write orders per [facility] inpatient glycemic control protocol. * Major changes made by pharmacy to antidiabetic regimen include: * discussion about insulin pump settings * signing of agreement for insulin pump * Patient has been utilizing insulin pump for adequate glycemic control * Patient has expressed desire to manage insulin pump himself. * Please see recommendations for outpatient antidiabetic regimen below. PLAN FOR INPATIENT GLYCEMIC CONTROL: No changes needed to current regimen. * Continue insulin pump per hospital policy * Pharmacy is signing off of glycemic consult and will no longer be making adjustments to inpatient regimen. Please feel free to re-consult if needed. Thank you. DISCHARGE RECOMMENDATIONS: * A1c 6.4 % on 03/26/20 * Continue insulin pump with current settings as long as patient is not having any issues with hypoglycemia
[2020-03-26] MEDS ORDERED: HEPARIN (PORCINE) 1000 UNIT/ML 10 ML (CATH LAB USE ONLY) ONE ×2 (11:11→12:22)
[2020-03-26] MEDS ORDERED: fentaNYL citrate 100 MCG/2 ML VIAL ONE (11:11)
[2020-03-26] MEDS ORDERED: niCARdipine HCL INJ 2.5 MG/ML 10 ML AMP ONE (11:11)
[2020-03-26] MEDS ORDERED: MIDAZOLAM HCL 1 MG/ML 2ML VIAL ONE ×2 (11:11→12:33)
[2020-03-26] MEDS ORDERED: NITROGLYCERIN/D5W 100MCG/ML 20ML SYR ONE (11:12)
--- NOTE | 2020-03-26 11:36 | Cardiology Progress Note ---
Date of Service March 26, 2020 Assessment & Plan (1) Status post insertion of drug-eluting stent into left anterior descending (LAD) artery: (2) Abnormal stress echocardiogram: (3) Diabetes mellitus: (4) Dyslipidemia, goal LDL below 70: Patient will proceed with staged percutaneous intervention of the right coronary artery today. Risks of procedure discussed. He is agreeable. Continue dual antiplatelet therapy for minimum of 6 months post percutaneous intervention. Continue high intensity statin therapy. Pharmacy consulted for glycemic management, however, patient will continue to manage with his home monitor and infusion pump. Admission and Anticipated Discharge Date Admission Date: March 25, 2020 Subjective Patient seen and examined the bedside. Feeling well from a cardiovascular perspective. Denies chest pain or unusual shortness of breath overnight. Hypoglycemia noted this a.m. Managing his insulin via personal infusion pump. Tolerating current medications. Blood pressure improving. Cardiac catheterization performed yesterday with successful percutaneous intervention of the proximal left anterior descending artery. Tentatively planned for RCA intervention today. Review of Systems Review of Systems: All systems reviewed & are unremarkable except as noted in Subjective Physical Exam Constitutional: well developed and + obese; no acute distress and not ill appearing Eyes: PERRL, conjunctivae normal, anicteric sclerae Respiratory: normal respiratory effort, lungs clear to auscultation Auscultation: no crackles, no rales, no rhonchi and no wheezes Cardiovascular: Rate/Rhythm: regular rate and regular rhythm Heart Sounds: normal S1 and normal S2; no gallop, no murmur and no cardiac rub Vessels: no JVD and no carotid bruit Extremities: no edema Gastrointestinal (Abdomen): Inspection/Auscultation: normal bowel sounds; abdomen not distended and no abdominal edema Percussion/Palpation: abdomen soft; abdomen nontender, no guarding and abdomen not rigid Skin: no rashes, warm and dry Neurologic: CN's II-XI intact bilaterally and moves all extremities Motor/Sensory: no tremor Psychiatric: A+Ox3, euthymic affect Results & Data ([facility]) Vital Signs (Past 12 Hours) Vital Signs Temp Pulse Resp BP Pulse Ox 03/26/20 07:40 36.6 C 66 20 131/61 96 03/26/20 04:00 36.5 C 63 20 125/69 98 03/26/20 00:16 36.6 C 60 20 119/61 95
--- NOTE | 2020-03-26 12:01 | Pre Anesthesia Assessment ---
Date of Service March 26, 2020 Pre Sedation Assessment Vital Signs Temp Pulse Pulse Pulse Resp BP Pulse Ox 03/26/20 11:26 65 17 175/68 H 97 03/26/20 07:40 97.9 F 66 20 131/61 96 03/26/20 04:00 97.7 F 63 20 125/69 98 03/26/20 00:16 97.9 F 60 20 119/61 95 03/25/20 19:26 76 03/25/20 19:24 73 18 162/72 H 95 03/25/20 19:11 97.5 F L 69 20 170/77 H 96 03/25/20 16:16 69 16 174/76 H 95 03/25/20 15:46 70 18 180/73 H 95 03/25/20 15:06 68 17 177/72 H 95 03/25/20 14:07 98.1 F 71 18 177/73 H 98 03/25/20 14:06 98.4 F 78 78 18 197/93 H 95 03/25/20 13:30 72 16 154/80 H 96 03/25/20 13:15 81 16 176/76 H 95 03/25/20 13:00 74 16 181/113 H 96 03/25/20 12:35 69 16 94 03/25/20 12:20 69 16 154/68 H 94 03/25/20 12:05 72 16 147/81 H 94 Cardiovascular RRR, no murmur, no edema Respiratory normal respiratory effort, lungs clear to auscultation Pre-Sedation Airway Assessment Smoking Status: Former smoker Hx Sleep Apnea: Yes Hx Difficult Intubation: No Short, Thick Neck: Yes Thyromental Distance: > or= 3.5 Finger Breadths Oral Cavity: + WNL Mallampati Class: III ASA: ASA3 NPO Status Date of Last Intake of Fluids: 03/25/20 Time of Last Intake of Fluids: 21:00 Date of Last Intake of Solid Food: 03/26/20 Time of Last Intake of Solid Foods: 08:00 Procedure Planning Contraindications for Sedation: none Current Medications Reviewed: Yes Notes The planned sedation has been discussed with the patient. Informed Consent was obtained. I have identified the patient, determined the appropriateness of sedation and have assessed the patient immediately prior to the procedure. All medicine(s) and interventions are by my order.
[2020-03-26] MEDS ORDERED: CLOPIDOGREL BISULFATE 300 MG TAB ONE (12:41)
--- NOTE | 2020-03-26 12:50 | Cardiac Catheterization ---
[facility] Data: Counseling [facility] Director Cardiac Status Clinical evaluation leading to the procedure CAD Presenation: Positive Stress Test Anginal Classification: CCS III Heart Failure: No Cardiogenic Shock within 24 Hours: No Cardiac Arrest within 24 Hours: No Imaging Studies Past 6 Months: Yes Stress Studies Past 6 Months: Yes Stress Echocardiogram: Yes - Positive and Risk/Extent of Ischemia (Intermediate) Diagnostic Physicians Name: Aaron Singer MD Status: Elective Closure Device Percutaneous Entry Location: Radial Closure Device: Radial Band Recommendations: PCI without planned CABG PCI Indication: Staged PCI Lesion Segment Name: Mid and distal RCA Culprit Artery: Yes Stenosis Prior to Rx (%): 80 Chronic Total Occlusion: No IVUS: No FFR: No Pre-Procedure MEY Flow: 3 Previously Treated Lesion: No Lesion Complexity: Non-High/Non-C Lesion Length (mm): Mid 12, distal 18 Thrombus Present: No Bifurcation Lesion: No Guidewire Across Lesion: Stenosis Post-Procedure (%): 0 Post-Procedure MEY Flow: 3 Devices(s) Deployed: Yes Yes Intraprocedure Events Significant Disection: No Perforation: No Cardiac Cath Procedure Full Procedure Date March 26, 2020 Pre-Procedure Diagnosis Pre-Procedure Diagnosis: Positive Stress Test AUC Score AUC Score: 7 Post-Procedure Diagnosis Post-Procedure Diagnosis: Severe CAD and Successful PCI Procedure(s) Performed Procedure(s) Performed: Coronary Angiography, Left Heart Cath and Drug Eluting Stent Title 1 Tutor Aaron Singer MD Chemical Lab Technician(s) Angel Estimated Blood Loss Estimated Blood Loss: 15 Medication(s) Medication(s): Clopidogrel, Fentanyl, Heparin, Lidocaine 1%, Nicardipine, Nitroglycerin and Versed Summary of Findings Indication: Staged PCI of RCA Access: 6 Fr right radial artery Catheters: JR4 guide Findings: For full details of patient's coronary angiography please see cath report dictated by Dr. Patricio on 03/25/2020. Briefly, patient found to have severe two-vessel disease involving LAD and RCA. Had 2 stents placed to mid LAD yesterday. Patient brought back for staged PCI of RCA disease. -- PCI of RCA-- Antithrombotic therapy: Heparin, clopidogrel Procedure: RCA cannulated with JR4 guide BMW wire passed across lesion into distal vessel Distal RCA lesion predilated with 2.5 compliant balloon Mid RCA lesion predilated with 2.5 compliant balloon With the aid of a GuideLiner dilated distal RCA lesion stented with 2.75 x 22 mm Bernard drug-eluting stent Stent post-dilated with 3.0 noncompliant balloon Mid RCA lesion stented with 3.0 x 15 mm Bernard drug-eluting stent Mid RCA stent dilated with 3.5 NC IC vasodilators administered for spasm Post procedure MEY 3 flow, stent2 well expanded with minimal residual stenosis and no apparent cardiac complications. Arterial Closure: TR band Summary: 1. Successful PCI of mid RCA and distal RCA with 2 nonoverlapping drug-eluting stents (3.0 x 15, 2.75 x 22 mm [place]). 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 Any exceptions are noted below. [facility] Card Cath Procedure Codes Cardiac Catheterization Procedure 1: Cardiovascular Cath Procedures: 84381 Left Heart Cath (+/-LV) Moderate Sedation Procedure 1: Sedation/Anesthesia: 06182 Mod Sedation by the same physician;Init15 Min Child Age 5 & Up Procedure 2: Sedation/Anesthesia: 24780 Mod Sedation by the same physician; Ea [id number] Minutes Stenting Procedure 1: Cardiovascular Stent Procedures: 12945 Perc transcatheter placement of intracoronary stent(s), with ang PG Care Time/CCT Total # of Minutes Spent Total Time Spent with Patient: Total time spent is greater than 50% in coordination of care (as documented) at patient's floor/unit and/or counseling patient:
[2020-03-26] MEDS ORDERED: SODIUM CHLORIDE 0.9% 1000ML 1,000 ML IV SCH (13:00)
[2020-03-26] MEDS: DOXAZosin MESYLATE 4 MG TAB PO SCH (20:29)
[2020-03-26] MEDS: ATORVASTATIN 40 MG TAB PO SCH (20:30)
[2020-03-26] MEDS: GABAPENTIN 300 MG CAP PO SCH (20:31)
[2020-03-26] MEDS: lisinopril 40 MG TAB PO SCH (20:32)
[2020-03-27 07:41] LABS: BUN Creatinine Ratio 19.5 (10-20); Calcium 8.6 mg/dl (8.5-10.1); Creatinine Clr Calc Pharmacy 155.5 ml/min; Est GFR (African American) 108.5; Est GFR (Non-African American) 93.6; Potassium 3.4 mmol/L (3.5-5.1)
[2020-03-27] MEDS: ASPIRIN 81 MG ECTAB PO SCH (08:14)
[2020-03-27] MEDS: ACETAMINOPHEN 325 MG TAB PO SCH (08:14)
[2020-03-27] MEDS: METOPROLOL SUCC 50MG EXT REL TAB PO SCH (08:15)
[2020-03-27] MEDS: SPIRONOLACTONE 25 MG TAB PO SCH (08:15)
[2020-03-27] MEDS: amLODIPine BESYLATE 5 MG TAB PO SCH (08:15)
[2020-03-27] MEDS: FINASTERIDE 5 MG TAB PO SCH (08:15)
[2020-03-27] MEDS: FERROUS SULFATE 325 MG TAB PO SCH (08:15)
[2020-03-27] MEDS: ISOSORBIDE MONO EXTENDED REL 30 MG TABCR PO SCH (08:15)
[2020-03-27] MEDS: CLOPIDOGREL BISULFATE 75 MG TAB PO SCH (08:16)
[2020-03-27] MEDS: NovoLOG INSULIN PUMP SCH (08:17)
[2020-03-27] MEDS ORDERED: POTASSIUM CHLORIDE CRTAB 20 MEQ TABCR PO STA (08:36)
--- NOTE | 2020-03-27 09:43 | Cardiology Progress Note ---
Date of Service March 27, 2020 Assessment & Plan (1) Status post insertion of drug-eluting stent into left anterior descending (LAD) artery: (2) Abnormal stress echocardiogram: (3) Diabetes mellitus: (4) Dyslipidemia, goal LDL below 70: Continue dual antiplatelet therapy for minimum of 6 months post percutaneous intervention. Continue high intensity statin therapy and other cardiovascular meds as previously ordered. Prescriptions sent to [facility] pharmacy. Outpatient cardiology follow up in 1-2 weeks. Post cardiac catheterization activity restrictions listed below. ACTIVITY RECOMMENDATIONS: It is common to feel weak and fatigue for a few days. * Do not drive or operate any motorized equipment for the next three days. * Limit stair usage (2 or 3 trips a day only) for the next three days. * Do not lift anything heavier than 10 pounds for the next three days. * Do not engage in vigorous exercise or any sports for the next five days. * You may shower the day after your procedure, but do not immerse the area for three days. Cleanse the site gently with soap and water. SPECIAL CARE INSTRUCTIONS: * You may replace the pressure dressing or band-aid the morning after the procedure. * After your procedure, it is normal to have a small bruise or small lump at the site. Examine your site daily for any change in the bruise or lump, redness, swelling, drainage or numbness. Notify your doctor if any change. BLEEDING: * If there is a small amount of bleeding at the site, lie down and apply firm pressure with a clean cloth for ten minutes. When the bleeding stops, lie quietly keeping the procedure limb straight for six hours. Notify your doctor as soon as possible. * If the bleeding does not stop after ten minutes or if there is a large amount of bleeding or spurting, call 911 immediately. Continue to lie down and hold firm pressure until help arrives. SKIN IRRITATION: * You may experience some redness and/or swelling in the area where radiation was administered. If any skin irritation occurs, please contact your family physician. FOLLOW UP VISIT: Keep any scheduled doctor appointments. Admission and Anticipated Discharge Date Admission Date: March 25, 2020 Subjective Patient seen examined at bedside. Feeling well from a cardiovascular standpoint. Denies chest pain or SOB. No palpitations, orthopnea,or PND. BP improved with titration of amlodipine. RCA intervention performed yesterday without complication. Review of Systems Review of Systems: All systems reviewed & are unremarkable except as noted in Subjective Physical Exam Constitutional: well developed and + obese; no acute distress and not ill appearing Eyes: PERRL, conjunctivae normal, anicteric sclerae ENMT: Mallampati Class: III Respiratory: normal respiratory effort, lungs clear to auscultation Auscultation: no crackles, no rales, no rhonchi and no wheezes Cardiovascular: RRR, no murmur, no edema Rate/Rhythm: regular rate and regular rhythm Heart Sounds: normal S1 and normal S2; no gallop, no murmur and no cardiac rub Vessels: radial pulses present; no JVD and no carotid bruit Extremities: no edema Gastrointestinal (Abdomen): Inspection/Auscultation: normal bowel sounds; abdomen not distended and no abdominal edema Percussion/Palpation: abdomen soft; abdomen nontender, no guarding and abdomen not rigid Musculoskeletal: Mild right anterior wrist ecchymosis. Skin: no rashes, warm and dry Neurologic: CN's II-XI intact bilaterally and moves all extremities Motor/Sensory: no tremor Psychiatric: A+Ox3, euthymic affect Results & Data ([facility]) Vital Signs (Past 12 Hours) Vital Signs Temp Pulse Pulse Resp BP Pulse Ox 03/27/20 07:56 36.5 C 60 20 142/69 H 99 03/27/20 04:34 36.5 C 56 L 18 147/70 H 98 03/27/20 00:34 66 03/27/20 00:01 36.7 C 61 18 147/61 H 96
--- NOTE | 2020-04-09 10:16 | Discharge Summary ---
Date of Service April 09, 2020 Admission HPI Per Admitting Provider Patient presents for elective cardiac catheterization after abnormal dobutamine stress ECHO. Symptoms include palpitations and dyspnea on exertion. Principal Diagnosis Abnormal dobutamine stress ECHO. Discharge Exam Constitutional well developed and + obese; no acute distress and not ill appearing Eyes PERRL, conjunctivae normal, anicteric sclerae ENMT Mallampati Class: III Respiratory normal respiratory effort, lungs clear to auscultation Auscultation: no crackles, no rales, no rhonchi and no wheezes Cardiovascular RRR, no murmur, no edema Rate/Rhythm: regular rate and regular rhythm Heart Sounds: normal S1 and normal S2; no gallop, no murmur and no cardiac rub Vessels: radial pulses present; no JVD and no carotid bruit Extremities: no edema Gastrointestinal (Abdomen) Inspection/Auscultation: normal bowel sounds; abdomen not distended and no abdominal edema Percussion/Palpation: abdomen soft; abdomen nontender, no guarding and abdomen not rigid Skin no rashes, warm and dry Neurologic CN's II-XI intact bilaterally and moves all extremities Motor/Sensory: no tremor Psychiatric A+Ox3, euthymic affect Discharge Data Allergies Allergy/AdvReac Type Severity Reaction Status Date / Time Penicillins Allergy Intermediate HIVES Verified 03/25/20 07:27 Procedures Performed Operation Date: 03/25/20 08:00 Actual Procedures s Cineradiography w/Routine Exam - DO kate Montes Cath, Right and Left Heart - Usman Best DO s Fraction Flow [place] SGL Ves - Jung Singer MD s IVUS Coronary Single Vessel - Jung Singer MD s IVUS Coronary each ADDL Vessel - Jung Singer MD p Drug Eluting Stent SGl Vessel - Jung Singer MD Operation Date: 03/26/20 11:30 Actual Procedures p Cath, Left with Cors and Vent - Jung Singer MD p Drug Eluting Stent SGl Vessel - Jung Singer MD s Cineradiography w/Routine Exam - Jung Singer MD Ordered Studies 03/25/20 06:28 CL Cath Imgs for PACS use only Routine 03/25/20 12:06 CL IVUS Coronary Single Vessel Routine 03/26/20 11:20 CL Cath Imgs for PACS use only Routine Hospital Course (1) Status post insertion of drug-eluting stent into left anterior descending (LAD) artery: (2) Abnormal stress echocardiogram: (3) Diabetes mellitus: (4) Dyslipidemia, goal LDL below 70: Cardiac catheterization revealing severe 2 vessel CAD, LAD and RCA. Underwent drug-eluting stenting x2 to LAD, as well as drug-eluting stent implantation x2 to the RCA during hospitalization. No complications. Continue dual antiplatelet therapy for minimum of 6 months post percutaneous intervention. Continue high intensity statin therapy and other cardiovascular meds as previously ordered. Prescriptions sent to [facility] pharmacy. Outpatient cardiology follow up in 1-2 weeks. Post cardiac catheterization activity restrictions listed below. ACTIVITY RECOMMENDATIONS: It is common to feel weak and fatigue for a few days. * Do not drive or operate any motorized equipment for the next three days. * Limit stair usage (2 or 3 trips a day only) for the next three days. * Do not lift anything heavier than 10 pounds for the next three days. * Do not engage in vigorous exercise or any sports for the next five days. * You may shower the day after your procedure, but do not immerse the area for three days. Cleanse the site gently with soap and water. SPECIAL CARE INSTRUCTIONS: * You may replace the pressure dressing or band-aid the morning after the procedure. * After your procedure, it is normal to have a small bruise or small lump at the site. Examine your site daily for any change in the bruise or lump, redness, swelling, drainage or numbness. Notify your doctor if any change. BLEEDING: * If there is a small amount of bleeding at the site, lie down and apply firm pressure with a clean cloth for ten minutes. When the bleeding stops, lie quietly keeping the procedure limb straight for six hours. Notify your doctor as soon as possible. * If the bleeding does not stop after ten minutes or if there is a large amount of bleeding or spurting, call 911 immediately. Continue to lie down and hold firm pressure until help arrives. SKIN IRRITATION: * You may experience some redness and/or swelling in the area where radiation was administered. If any skin irritation occurs, please contact your family physician. FOLLOW UP VISIT: Keep any scheduled doctor appointments. Total Time Total Time Spent Total Time Spent (In Minutes): 35 Total Time Includes: Examination of the Patient, Discharge Planning, Medication Reconciliation and Communication With Other Providers Discharge Plan Discharge Items Patient Disposition: Home - Self-Care Reason For Visit: Abnormal Dobutamine Stress, Angina, Pulmonary HTN Discharge Diagnosis: CAD status post stenting of the Left anterior descending aretery and right coronary artery. Condition on Discharge: Good Activity: Per Instructions section Non-emergency contact: Echocardiography Tech Call non-emergency contact if: you have any medication questions, your symptoms worsen and your pain is unusual for you Follow-up/Referrals: Hayden Benson DO [Primary Care Provider] - 03/31/20 10:45 am Diet: Carb Consistent or DM2 and Heart Healthy Addtl Attending Provider Instructions: ACTIVITY RECOMMENDATIONS: It is common to feel weak and fatigue for a few days. * Do not drive or operate any motorized equipment for the next three days. * Limit stair usage (2 or 3 trips a day only) for the next three days. * Do not lift anything heavier than 10 pounds for the next three days. * Do not engage in vigorous exercise or any sports for the next five days. * You may shower the day after your procedure, but do not immerse the area for three days. Cleanse the site gently with soap and water. SPECIAL CARE INSTRUCTIONS: * You may replace the pressure dressing or band-aid the morning after the procedure. * After your procedure, it is normal to have a small bruise or small lump at the site. Examine your site daily for any change in the bruise or lump, redness, swelling, drainage or numbness. Notify your doctor if any change. BLEEDING: * If there is a small amount of bleeding at the site, lie down and apply firm pressure with a clean cloth for ten minutes. When the bleeding stops, lie quietly keeping the procedure limb straight for six hours. Notify your doctor as soon as possible. * If the bleeding does not stop after ten minutes or if there is a large amount of bleeding or spurting, call 911 immediately. Continue to lie down and hold firm pressure until help arrives. SKIN IRRITATION: * You may experience some redness and/or swelling in the area where radiation was administered. If any skin irritation occurs, please contact your family physician. FOLLOW UP VISIT: Keep any scheduled doctor appointments. Stand-Alone Forms: [facility] [employer], Smoking Cessation Medications and DC Order Prescriptions: New clopidogrel 75 mg Tablet 75 mg PO QAM Qty: 90 RF: 3 amlodipine [Norvasc] 5 mg Tablet 5 mg PO DAILY Qty: 90 RF: 3 Continued aspirin [Adult Low Dose Aspirin] 81 mg tablet,delayed release (DR/EC) 81 mg PO HS RF: 0 atorvastatin [Lipitor] 80 mg tablet 80 mg PO QPM RF: 0 finasteride [Proscar] 5 mg tablet 5 mg PO QAM RF: 0 gabapentin 300 mg capsule 900 mg PO HS RF: 0 lisinopril 40 mg tablet 40 mg PO QPM RF: 0 Novolog U-100 Insulin aspart 100 unit/mL solution 140 units SQ DAILY RF: 0 doxazosin 4 mg tablet 8 mg PO HS RF: 0 metoprolol succinate 100 mg tablet extended release 24 hr 50 mg PO DAILY Qty: 90 RF: 3 spironolactone 50 mg tablet 50 mg PO DAILY Qty: 30 RF: 2 hydrocortisone 2.5 % Cream With Perineal Applicator 1 applic TX BID PRN (Reason: Hemorrhoids) RF: 0 ferrous sulfate 325 mg (65 mg iron) Tablet 325 mg PO QDB RF: 0 albuterol sulfate 90 mcg/actuation Hfa Aerosol Inhaler 2 puff INHALATION Q4 PRN (Reason: Shortness Of Breath) RF: 0 acetaminophen [Tylenol Arthritis Pain] 650 mg Tablet Extended Release 650 mg PO TID PRN (Reason: Pain) RF: 0 isosorbide mononitrate 30 mg Tablet Extended Release 24 Hr 30 mg PO QDB RF: 0 furosemide 20 mg tablet 20 mg PO BID RF: 0 nitroglycerin 0.4 mg Tablet, Sublingual See Rx Instructions .ROUTE .COMPLEX PRN (Reason: chest pain) RF: 0 Discontinued amlodipine 2.5 mg Tablet 2.5 mg PO QDB RF: 0 naproxen sodium 220 mg Capsule 220 mg PO DAILY PRN (Reason: Pain) RF: 0 Discharge Orders: Discharge Order (Routine); Ordered 03/27/20 Ordered By: Usman Marie/Other Patient Handouts: Managing Type 2 Diabetes Admission Data Admit Date/Time: 03/25/20 10:12 Attending Provider: Usman Best Admit Provider: Usman Best Primary Care Provider: Hayden Benson Other Interventions: Discharge Summary Assessment (RN) Last Done: 03/27/20 10:07
== END 2020-03-27 11:38 | disposition home or self-care (01) ==
LOC: CC 07:00 → 2S 07:00